=== PATIENT | male | born 2000 | race Caucasian/White ===

== ENCOUNTER 2024-08-18 09:28 | Emergency (ER) | payer SELFPAY ==
[2024-08-18] MEDS ORDERED: Sodium Chloride 0.9% 2.5 ML Syringe FLUSH PRN (10:20)
[2024-08-18] MEDS: Acetaminophen/oxyCODONE 325-5 MG Tab PO ONE (11:10)
[2024-08-18] MEDS: Ondansetron 4 MG Tab.DIS PO ONE (11:10)
[2024-08-18] MEDS: Sodium Chloride 0.9% 10 ML Syringe FLUSH PRN (11:11)
[2024-08-18 11:33] LABS: BASOPHILS ABSOLUTE AUTO 0.05 K/uL (0.00-0.20); BASOPHILS PERCENT AUTO 0.8 % (0.0-1.0); EOSINOPHILS ABSOLUTE AUTO 0.05 K/uL (0.00-0.45); EOSINOPHILS PERCENT AUTO 0.8 % (0.0-6.0); HEMOGLOBIN 15.8 g/dL (14.0-18.0); LYMPHOCYTES ABSOLUTE AUTO 2.49 K/uL (1.00-4.80); MEAN CORPUSCULAR HEMOGLOBIN 25.6 pg (28.0-32.0); MEAN CORPUSCULAR HGB CONC 32.2 g/dL (32.0-36.0); MEAN CORPUSCULAR VOLUME 79.4 fL (83.0-99.0); MEAN PLATELET VOLUME 10.8 fL (9.4-12.4); MONOCYTES ABSOLUTE AUTO 0.34 K/uL (0.00-0.80); MONOCYTES PERCENT AUTO 5.5 % (0.0-8.0); NEUTROPHILS PERCENT AUTO 52.9 % (41.0-71.0); PLATELET COUNT,PLT 171 K/uL (150-400); RED BLOOD CELL COUNT 6.17 M/uL (4.52-5.90); WHITE BLOOD CELL COUNT,WBC 6.23 K/uL (3.9-11.3)
[2024-08-18 12:01] LABS: ALBUMIN 4.2 g/dL (3.4-5.0); BILIRUBIN TOTAL 0.6 mg/dL (0.2-1.0); CALCIUM 9.6 mg/dL (8.5-10.1); CARBON DIOXIDE,CO2 29.2 mmol/L (21.0-32.0); EST CRCL DRUG DOSING (CG) 122.36 mL/min; POTASSIUM,K 3.9 mmol/L (3.5-5.1); PROTEIN TOTAL,TP 8.2 g/dL (6.4-8.2)
[2024-08-18] MEDS: Iopamidol 755 MG/ML 500 ML Multipack Bottle IVPUSH STA (12:33)
[2024-08-18] MEDS: diphenhydrAMINE 50 MG/ML SDV IVPUSH ONE (12:37)
== END 2024-08-18 13:38 | disposition home or self-care (01) ==
LOC: MW.ED 09:28
DX: S89.92XA Unspecified injury of left lower leg, initial encounter (principal); W20.8XXA Other cause of strike by thrown, projected or falling object, initial encounter
CPT/HCPCS: 36415; 73562; 73706; 80053; 85025; 96374; 99284; A9270; J1200; J3490; Q9967